=== PATIENT | male | born 1985 | race Caucasian/White ===

== ENCOUNTER 2023-03-10 22:44 | Emergency (ER) | payer MEDICAID, OTHER ==
[~2023-03-10] VITALS: Ht 180.3 cm; Wt 68.0 kg
--- NOTE | 2023-03-10 23:00 | NUR ---
bibs "i just want a blood test, they think I'm a drug addict"
--- NOTE | 2023-03-10 23:15 | NUR ---
DR. FABIAN AT BEDSIDE
[2023-03-11 00:30] VITALS: BP 150/73
== END 2023-03-11 00:30 | disposition home or self-care (01) ==
LOC: ER 22:49
DX: Z00.00 Encounter for general adult medical examination without abnormal findings (principal)

== ENCOUNTER 2023-03-11 13:13 | Emergency (ER) | payer MEDICAID, OTHER ==
[~2023-03-11] VITALS: Ht 180.3 cm; Wt 68.0 kg
--- NOTE | 2023-03-11 13:13 | NUR ---
BIBS FOR BILATERAL KIDNEY PAIN. A/O X 3, ABLE TO MAKE NEEDS KNOWN, TOLERATING WELL ON ROOM AIR.
--- NOTE | 2023-03-11 14:41 | NUR ---
IV removed. Catheter intact and site benign. Pressure and 4x4 applied to site. No bleeding noted.
--- NOTE | 2023-03-11 14:42 | NUR ---
Patient does not wish to proceed with medical care recommended by Dr. Barboza. Patient given information related to possible complications, up to and including , which could occur as a result of leaving the hospital at this time. Patient verbalizes understanding of risks involved due to leaving against medical advice. Patient left unit via ambulation without signing AMA form.
[2023-03-11 14:43] VITALS: BP 138/89
== END 2023-03-11 14:44 | disposition left against medical advice (07) ==
LOC: ER 13:21
DX: R10.9 Unspecified abdominal pain (principal)

== ENCOUNTER 2023-10-03 14:29 | Emergency (ER) | payer MEDICAID, OTHER ==
[~2023-10-03] VITALS: Ht 180.3 cm; Wt 68.5 kg
[2023-10-03 15:49] VITALS: BP 121/84; TEMP 98.7; O2SAT 100
== END 2023-10-03 15:49 ==
LOC: ER 14:45
DX: S60.418A Abrasion of other finger, initial encounter (principal); W26.0XXA Contact with knife, initial encounter; Y93.89 Activity, other specified; Y92.89 Other specified places as the place of occurrence of the external cause; Y99.8 Other external cause status

== ENCOUNTER 2024-05-16 12:57 | Emergency (ER) | payer BC, MEDICAID, OTHER ==
[~2024-05-16] VITALS: Ht 180.3 cm; Wt 52.2 kg
[2024-05-16 14:32] LABS: BASOPHILS % (AUTO) 0.4 % (0.0-2.0); EOSINOPHILS # (AUTO) 0.2 K/uL (0.0-0.7); EOSINOPHILS % (AUTO) 3.7 % (0.0-6.0); HEMATOCRIT 41 % (39-51); HEMOGLOBIN 14.5 g/dL (13.5-17.5); LYMPHOCYTES # (AUTO) 1.8 K/uL (0.8-4.8); LYMPHOCYTES % (AUTO) 29.2 % (20.0-44.0); MEAN CORPUSCULAR HEMOGLOBIN 30 PG (26.0-33.0); MEAN CORPUSCULAR HGB CONC 35 g/dl (31.0-36.0); MEAN CORPUSCULAR VOLUME 86 fL (80-96); MONOCYTES # (AUTO) 0.5 K/uL (0.1-1.30); MONOCYTES % (AUTO) 7.6 % (2.0-12.0); NEUTROPHILS # (AUTO) 3.6 K/uL (1.8-8.9); NEUTROPHILS % (AUTO) 59.1 % (43.0-81.0); PLATELET COUNT (AUTO) 279 K/uL (150-450); RED BLOOD CELL COUNT(AUTO) 4.81 MIL/uL (4.5-6.0); RED CELL DISTRIBUTION WIDTH 13.3 % (11.5-15.0); WHITE BLOOD COUNT (AUTO) 6.2 K/uL (4.3-11.0)
[2024-05-16 14:44] LABS: CALCIUM, SERUM 9.7 mg/dL (8.5-10.1); CARBON DIOXIDE 27 mmol/L (21-32); CHLORIDE 101 mmol/L (98-107); GLUCOSE 78 mg/dL (74-106); POTASSIUM 4.6 mmol/L (3.5-5.1); SODIUM SERUM 140 mmol/L (136-145); UREA NITROGEN, BLOOD 13 mg/dL (7-18)
[2024-05-16 14:50] LABS: ALANINE AMINOTRANSFERASE 29 U/L (12-78); ALBUMIN 4.3 g/dL (3.4-5.0); ALCOHOL, BLOOD < 3 mg/dL (0-10); ALKALINE PHOSPHATASE 76 U/L (46-116); ASPARTATE AMINOTRANSFERASE 16 U/L (15-37); BILIRUBIN,DIRECT 0.2 mg/dL (0.0-0.2); BILIRUBIN,TOTAL 0.8 mg/dL (0.2-1.0)
[2024-05-16 14:51] LABS: SALICYLATE 1.1 mg/dL (2.8-20.0)
[2024-05-16 14:52] LABS: ACETAMINOPHEN 0 ug/ml (10-30)
[2024-05-16] MEDS: OLANZAPINE 5 MG TABLET PO ONE (15:32)
[2024-05-16] MEDS ORDERED: OLANZAPINE 5 MG TABLET ONE (15:32)
[2024-05-16 15:58] LABS: APPEARANCE,URINE CLEAR (CLEAR); BILIRUBIN,URINE NEGATIVE (NEGATIVE); BLOOD, URINE 2+ Ery/uL (NEGATIVE); COLOR,URINE YELLOW (YELLOW); KETONES,URINE NEGATIVE (NEGATIVE); LEUKOCYTE ESTERASE ,URINE NEGATIVE (NEGATIVE); NITRITE, URINE NEGATIVE (NEGATIVE); PH,URINE 6.5 (5.0-8.0); PROTEIN,URINE NEGATIVE (NEGATIVE); UGLUCOSE NEGATIVE (NEGATIVE); UROBILINOGEN,URINE 0.2 EU/dL (0.2)
[2024-05-16 16:09] LABS: AMPHETAMINE, URINE NEGATIVE (NEGATIVE); BARBITURATE, URINE NEGATIVE (NEGATIVE); BENZODIAZEPINE, URINE NEGATIVE (NEGATIVE); COCCAINE, URINE NEGATIVE (NEGATIVE); OPIATE, URINE NEGATIVE (NEGATIVE); PHENCYCLIDINE SCREEN,URINE NEGATIVE (NEGATIVE)
[2024-05-16 16:12] LABS: CANNABINOID, URINE POSITIVE (NEGATIVE)
[2024-05-16 16:33] LABS: ADD URINE CULTURE NO; BACTERIA,URINE None seen /HPF (None Seen); RBC,URINE 21-50 /HPF (0-2); WBC,URINE 0-2 /HPF (0-3)
[2024-05-16 16:34] LABS: MUCUS,URINE Few /LPF (None Seen); SPERM,URINE Rare /HPF (None Seen)
[2024-05-16 19:51] VITALS: BP 132/75; TEMP 98.4; O2SAT 99
== END 2024-05-16 19:50 ==
LOC: ER 13:38
DX: F30.9 Manic episode, unspecified (principal); Z20.822 Contact with and (suspected) exposure to COVID-19
CPT/HCPCS: 36415; 80048-TC; 80076-TC; 81001; 85025-TC; G0480

== ENCOUNTER 2024-10-18 16:13 | Emergency (ER) | payer MEDICAID ==
[~2024-10-18] VITALS: Ht 177.8 cm; Wt 68.0 kg
[2024-10-18] MEDS ORDERED: LIDOCAINE 1% INJ 50 ML MDV IJ ONE (16:44)
[2024-10-18] MEDS ORDERED: AMOX/CLAVULANATE 875 MG TABLET ONE (17:00)
[2024-10-18] MEDS: AMOX/CLAVULANATE 875 MG TABLET PO ONE (17:01)
[2024-10-18] MEDS ORDERED: AMOX-430 PO (17:35)
[2024-10-18 17:56] VITALS: BP 121/74; TEMP 98.4; O2SAT 99
== END 2024-10-18 17:56 | disposition home or self-care (01) ==
LOC: ER 16:16
DX: S51.812A Laceration without foreign body of left forearm, initial encounter (principal); Z86.19 Personal history of other infectious and parasitic diseases; W26.8XXA Contact with other sharp object(s), not elsewhere classified, initial encounter; Y93.89 Activity, other specified; Y92.89 Other specified places as the place of occurrence of the external cause; Y99.8 Other external cause status
CPT/HCPCS: 12002; 99283; A6403; J3490

== ENCOUNTER 2024-10-22 13:17 | Emergency (ER) | payer MEDICAID ==
[~2024-10-22] VITALS: Ht 177.8 cm; Wt 68.0 kg
[~2024-10-22 13:17] MED LIST: AMOX-430 PO
[2024-10-22 15:01] VITALS: BP 125/81; TEMP 98.2
[2024-10-22] MEDS ORDERED: CLON1TAB PO (15:08)
[2024-10-22 16:39] VITALS: O2SAT 97
== END 2024-10-22 16:39 | disposition home or self-care (01) ==
LOC: ER 13:26
DX: Z76.0 Encounter for issue of repeat prescription (principal); Z86.19 Personal history of other infectious and parasitic diseases

== ENCOUNTER 2024-11-21 16:50 | Emergency (ER) | payer MEDICAID ==
[~2024-11-21] VITALS: Ht 177.8 cm; Wt 68.9 kg
[~2024-11-21 16:50] MED LIST changes: +CLON1TAB PO
[2024-11-21 17:09] VITALS: BP 136/77; TEMP 98.2; O2SAT 97
[2024-11-21] MEDS ORDERED: clonazePAM 1 MG TABLET ONE (18:01)
[2024-11-21] MEDS: clonazePAM 1 MG TABLET PO ONE (18:04)
== END 2024-11-21 18:05 | disposition home or self-care (01) ==
LOC: ER 16:57
DX: F41.0 Panic disorder [episodic paroxysmal anxiety] (principal); Z76.0 Encounter for issue of repeat prescription; Z79.899 Other long term (current) drug therapy; Z86.19 Personal history of other infectious and parasitic diseases; Z91.148 Patient's other noncompliance with medication regimen for other reason; Z60.2 Problems related to living alone